=== PATIENT | female | born 1965 | race Caucasian/White ===

== ENCOUNTER → 2016-09-23 | Outpatient (CLI) | payer OTHER ==
--- NOTE | 2016-09-23 15:43 | REP ---
LEFT BREAST MAMMOGRAM: Left breast mammogram is performed six months following a negative stereotactic biopsy for clustered microcalcifications in the upper outer quadrant of the left breast. There is again moderate fibroglandular tissue in the left breast. The metallic marking clip in the upper quadrant of the left breast is again seen and the calcifications are no longer visualized. There is no change since the prior exams with no new mass or clustered microcalcifications. IMPRESSION: ACR 2 benign stable mammogram with no change since post biopsy images 04/09/2016. Recommend followup bilateral mammogram February 2017. BI-RADS/ACR category 2 mammogram. Benign finding(s). Routine annual screening mammography (for women over age 40). This mammogram was interpreted with the aid of an FDA-approved computer-aided detection system. The patient states she/he had a clinical breast exam in 01/2016. The patient letter being requested is M1 Signed by Ned Bauer MD 09/23/2016 04:25 P
== END ==
LOC: M RAD 12:45
PROVIDERS: ATTEND Internal Medicine
DX: N63 Unspecified lump in breast (principal)

== ENCOUNTER → 2017-01-29 | Outpatient (REF) | payer OTHER | LOC: M SFHCLERA 16:34 | PROVIDERS: ATTEND Nurse Practitioner Family | DX: J02.9 Acute pharyngitis, unspecified (principal) ==